=== PATIENT | male | born 1960 | race Caucasian/White ===

== ENCOUNTER → 2017-02-26 | Outpatient (CLI) | payer BC ==
[~2017-02-26] MED LIST: METO50TA7 PO
--- NOTE | 2017-02-26 10:33 | Diagnostic Imaging Report ---
INDICATION: Chest pain. PA and lateral views of the chest were obtained. Comparison made with prior examination from 07/03/2006. FINDINGS: The heart size is normal. Mediastinum is unremarkable. There is some patchy right basilar atelectasis and/or pneumonitis. There is no pleural effusion or pneumothorax. Mediastinum is unremarkable. IMPRESSION: Patchy right basilar atelectasis and/or pneumonitis. Dictated by: Dictated on workstation # [id number]
== END ==
LOC: RAD 10:06
PROVIDERS: ATTEND Family Medicine
DX: R07.9 Chest pain, unspecified (principal); R05 Cough
CPT/HCPCS: 71020

== ENCOUNTER → 2018-09-15 | Outpatient (CLI) | payer BC ==
--- NOTE | 2018-09-15 15:32 | Diagnostic Imaging Report ---
Examination: Scrotal ultrasound. History: Right-sided testicular enlargement tenderness. Findings: No comparison available. Right testis measures 4.6 x 2.0 x 3.3 cm. It is normal in size and echogenicity. The left testis measures 4.7 x 2.0 x 3.2 cm. The vessels are normal in size and echogenicity. Both epididymides normal. There is normal color Doppler flow to both testes. There is a 4.7 x 2.8 x 6.1 cm anechoic lesion centered in the right epididymis. This is favored to represent a large epididymal cyst, but given its large size is difficult to anatomically localize and may represent a loculated hydrocele. Impression: 1. Normal testes with normal color Doppler flow. 2. Large cystic lesion centered the right epididymis, favored to represent a large epididymal cyst, less likely a loculated hydrocele. Dictated by: Dictated on workstation # [id number]
== END ==
LOC: RAD 14:28
PROVIDERS: ATTEND Family Medicine
DX: N50.3 Cyst of epididymis (principal)
CPT/HCPCS: 76870

== ENCOUNTER 2018-09-29 05:59 | Outpatient (CLI) | payer BC ==
[~2018-09-29] VITALS: Ht 188 cm; Wt 100.2 kg
[2018-09-29] MEDS ORDERED: LISI-552 PO (12:03)
[2018-09-29] MEDS ORDERED: ALPR0.5T PO (12:03)
[2018-09-30] MEDS ORDERED: HYDR-3870 PO (07:21)
[2018-09-30] MEDS ORDERED: CEPH-507 PO (07:21)
== END 2018-09-29 12:10 | disposition home or self-care (01) ==
LOC: PREOP 05:59
PROVIDERS: ATTEND Urology
DX: Z01.818 Encounter for other preprocedural examination (principal)

== ENCOUNTER 2018-09-30 06:13 | Day surgery (SDC) | payer BC ==
[~2018-09-30] VITALS: Ht 188 cm; Wt 100.2 kg
[2018-09-30] VITALS (9 sets, daily range): BP systolic 118–128; BP diastolic 64–83
[~2018-09-30 06:13] MED LIST changes: +ALPR0.5T PO; +LISI-552 PO
--- OUTSIDE RECORDS SUMMARY | 2018-09-30 06:17 | XMS REPORT | Continuity of Care Document ---
Author Organization Unknown Address Unknown Allergies Active Description Code Type Severity Reaction Onset Reported/Identified Relationship to Patient Clinical Status Yes codeine [id number] Drug Allergy Unknown N/A 07/03/2006 Medications There is no data. Problems Date Dx Coded Attending Type Code Diagnosis Diagnosed By 02/14/2016 MICKY BHAGAT Ot 722.52 LUMB/LUMBOSAC DISC DEGEN 02/17/2016 KELLY RITTER MD Ot M25.561 PAIN IN RIGHT KNEE 02/22/2016 KELLY RITTER MD Ot M25.561 PAIN IN RIGHT KNEE 03/15/2017 KELLY RITTER MD Ot R05 COUGH 03/15/2017 KELLY RITTER MD Ot R07.9 CHEST PAIN, UNSPECIFIED 09/02/2017 MICKY BHAGAT Ot 722.52 LUMB/LUMBOSAC DISC DEGEN 09/02/2017 KELLY RITTER MD, Ot M25.561 PAIN IN RIGHT KNEE 09/02/2017 KELLY RITTER MD Ot R05 COUGH 09/02/2017 KELLY RITTER MD Ot R07.9 CHEST PAIN, UNSPECIFIED 09/03/2017 J LUIS AYALA Ot S49.92XA UNSP INJURY OF LEFT SHOULDER AND UPPER A 09/03/2017 J LUIS AYALA Ot Z53.8 PROCEDURE AND TREATMENT NOT CARRIED OUT 09/16/2018 KELLY RITTER MD Ot N50.3 CYST OF EPIDIDYMIS Procedures There is no data. Results There is no data. Encounters ACCT No. Visit Date/Time Discharge Status Pt. Type Provider Facility Loc./Unit Complaint [id number] 09/15/2018 14:28:00 09/15/2018 23:59:59 CLS Outpatient KELLY RITTER MD [facility] RAD PAIN IN RT TESTICLE [id number] 09/02/2017 07:41:00 09/02/2017 23:59:59 CLS Outpatient J LUIS AYALA [facility] RAD INJURY OF SHOULDER LEFT [id number] 02/26/2017 10:06:00 02/26/2017 23:59:59 CLS Outpatient KELLY RITTER MD [facility] RAD COUGH [id number] 02/14/2016 15:25:00 02/14/2016 23:59:59 CLS Outpatient KELLY RITTER MD [facility] RAD SEVERE R KNEE PAIN [id number] 09/07/2013 09:19:00 09/07/2013 23:59:59 CLS Outpatient MICKY BHAGAT [employer] [facility] RAD BACK PAIN [id number] 09/30/2018 10:15:00 PEN Preadmit JULITA BECKER MD [facility] RIGHT SPERMATOCELE [id number] 09/29/2018 05:59:00 ACT Outpatient JULITA BECKER MD [facility] PREOP RIGHT SPERMATOCELE
[2018-09-30] MEDS: LACTATED RINGERS 1,000 ML IV PRN ×2 (06:45→08:30)
--- NOTE | 2018-09-30 06:58 | Progress Note-Pre Operative ---
Pre-Operative Progress Note H&P Reviewed The H&P was reviewed, patient examined and no changes noted. Date Seen by Provider: Sep 30, 2018 Time Seen by Provider: 06:58 Date H&P Reviewed: Sep 30, 2018 Time H&P Reviewed: 06:58 Pre-Operative Diagnosis: RT SPERMATOCELE JULITA BECKER MD Sep 30, 2018 06:58
[2018-09-30] MEDS ORDERED: MIDAZOLAM 2 MG/2 ML (VERSED) VIAL ONE (06:59)
[2018-09-30] MEDS ORDERED: fentaNYL INJECTION 100 MCG/2 ML AMP ONE (07:00)
[2018-09-30] MEDS ORDERED: proPOfol 200 MG/20 ML (DIPRIVAN) VIAL IV ONE (07:02)
[2018-09-30] MEDS ORDERED: LIDOCAINE PF 2% 5 ML (XYLOCAINE) VIAL ONE (07:02)
--- NOTE | 2018-09-30 07:06 | Progress Note-Post Operative ---
Post-Operative Progess Note Surgeon (s)/Entry Level Project Engineer (s) Surgeon JULITA BECKER MD Entry Level Project Engineer: NONE Pre-Operative Diagnosis RT SPERMATOCELE Post-Operative Diagnosis SAME Procedure & Operative Findings Date of Procedure 09/30/18 Procedure Performed/Findings RT SPERMATOCELECTOMY Anesthesia Type GENERAL Estimated Blood Loss Estimated blood loss (mL): NEGLIGIBLE Specimens/Packing Specimens Removed SPERMATOCELE Packin/4# DAVID DRAIN JULITA BECKER MD Sep 30, 2018 07:06
[2018-09-30] MEDS ORDERED: ceFAZolin INJECTION 1,000 MG ONE (07:09)
--- NOTE | 2018-09-30 07:09 | Discharge Inst-Urology ---
Discharge Inst-Urology Discharge Medications New, Converted, or Re-newed RX: RX on Chart Patient Instructions/Follow Up Plan Please make appointment to been seen in office in 2 weeks. Rest till then and scrotal support Ice to scrotum in RR and at home for 6 hours and then PRN Office tomorrow 9am to DC drain then may shower, no bath Keep bowels soft and moving Increase oral fluids for 48 hours and then as needed. Diet as tolerated. If questions or concerns contact your physician Or seek help at emergency department. JULITA BECKER MD Sep 30, 2018 07:08
[2018-09-30] MEDS ORDERED: SEVOFLURANE (ULTANE) 15 ML INHAL SOLN ONE ×3 (07:12→08:46)
[2018-09-30] MEDS ORDERED: ceFAZolin INJECTION 1,000 MG in WATER (STERILE) FOR INJECTION 10 ML IV ONE (07:15)
[2018-09-30] MEDS ORDERED: HYDR-3870 PO (07:21)
[2018-09-30] MEDS ORDERED: CEPH-507 PO (07:21)
--- NOTE | 2018-09-30 08:16 | NUR ---
Hospital Nursing Assistant support offered prior to procedure: Pt is spiritual but not worship. 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 He describes 20+ years of strong rapport with his PCP, Dr. Madan Hand. The pt's left their family when his daughter was 5 yrs old and he raised her and her younger son. The son lives in [place]; the pt plans to meet his daughter in [place] this year to fish and spend time together. The pt describes supportive, loving relationships with his children and states this is a source of mary ann and comfort to him.
[2018-09-30] MEDS ORDERED: ONDANSETRON 4 MG/2 ML (SDV) Z0FRAN IVP PRN (08:45)
[2018-09-30] MEDS ORDERED: morphine INJ 10 MG/ML 1ML (SYR OR VIAL) IVP ONE (08:45)
[2018-09-30] MEDS ORDERED: fentaNYL INJECTION 100 MCG/2 ML AMP IVP ONE (08:45)
[2018-09-30] MEDS ORDERED: DEXAMETHASONE 10 MG/ML (DECADRON) 1 ML VIAL ONE (09:01)
[2018-09-30] MEDS ORDERED: ONDANSETRON 4 MG/2 ML (SDV) Z0FRAN ONE (09:01)
--- NOTE | 2018-09-30 11:35 | Anesthesia-General Post-Op ---
General Patient Condition Mental Status/LOC: Same as Preop Cardiovascular: Satisfactory Nausea/Vomiting: Absent Respiratory: Satisfactory Pain: Controlled Complications: Absent Post Op Complications Complications None Follow Up Care/Instructions Patient Instructions None needed. Anesthesia/Patient Condition Patient Condition Patient was seen after the procedure and he was doing well, no complaints, stable vital signs, no apparent adverse anesthesia problems. REMEDIOS HOGAN DO Sep 30, 2018 11:35
--- NOTE | 2018-09-30 12:28 | OPERATIVE REPORT ---
DATE OF SERVICE: 09/30/2018 PREOPERATIVE DIAGNOSIS: Right spermatocele. POSTOPERATIVE DIAGNOSIS: Right spermatocele. OPERATION PERFORMED: Right spermatocelectomy. SURGEON: Julita Becker MD ANESTHESIA: General. COMPLICATIONS: None. DESCRIPTION OF PROCEDURE: Under satisfactory general anesthesia, the patient in supine position, genitalia were prepped and draped in the usual sterile fashion. Incision was made in the median raphe, carried through the right scrotal compartment. The testicle and a large spermatocele were delivered. The spermatocele was carefully dissected to excise it completely without rupturing and this was successful to do. Vessels were spared as well as the vas. Small bleeders were cauterized. The edge of the spermatocele and connection was sutured with a 4-0 chromic catgut running suture for hemostatic and to prevent recurrence. Epididymis testicle was intact and preserved the vas as well as the spermatic cord and its vessels. Hemostasis was complete. The testicle was replaced into the scrotum that was drained with a quarter of an inch Leopoldo drain. Brought through a separate stab wound at the bottom of the scrotum secured in position with a 4-0 chromic catgut suture. Closure was performed in layer. The dartos with a running 4-0 chromic catgut and the skin was interrupted with 4-0 Vicryl. Telfa, fluff and scrotal support was applied. Estimated blood loss was negligible. Needle, sponge, instrument count correct x2. The patient tolerated the procedure and anesthesia well and was sent to recovery room in stable condition. Instructions were given to him preoperatively. Job ID: [id number] DocumentID: [id number] Dictated Date: 09/30/2018 09:05:16 Manager [place] Date: 09/30/2018 12:27:40 Dictated By: JULITA BECKER MD
== END 2018-09-30 10:42 | disposition home or self-care (01) ==
LOC: SDC 06:13
PROVIDERS: ATTEND Urology
DX: N43.41 Spermatocele of epididymis, single (principal); I10 Essential (primary) hypertension; F41.9 Anxiety disorder, unspecified; Z79.899 Other long term (current) drug therapy; Z88.5 Allergy status to narcotic agent; Z11.2 Encounter for screening for other bacterial diseases
CPT/HCPCS: 87081; 88302

== ENCOUNTER → 2019-03-17 | Outpatient (CLI) | payer BC ==
[~2019-03-17] MED LIST changes: +CEPH-507 PO; +HYDR-3870 PO
--- NOTE | 2019-03-17 15:02 | Diagnostic Imaging Report ---
INDICATION: Productive cough. TIME OF EXAM: 02:17 p.m. Correlation is made with prior chest from 02/26/2017. FINDINGS: Spinal stimulator overlies the mid thoracic spine. The lungs appear clear. No infiltrates are detected. No effusion or pneumothorax is seen. IMPRESSION: No acute abnormality is detected. Dictated by: Dictated on workstation # [id number]
== END ==
LOC: RAD 13:58
PROVIDERS: ATTEND Family Medicine
DX: F41.1 Generalized anxiety disorder (principal); R05 Cough
CPT/HCPCS: 71046

== ENCOUNTER 2019-03-21 08:41 | Observation (INO) | payer BC ==
[~2019-03-21] VITALS: Ht 188 cm; Wt 112.2 kg
[2019-03-21] MEDS ORDERED: NS IV 1000 ML 1,000 ML IV SCH ×2 (08:49)
--- NOTE | 2019-03-21 08:58 | ED Chest Pain ---
General Stated Complaint: CHEST PAIN / SOA Source: patient Exam Limitations: no limitations History of Present Illness Date Seen by Provider: Mar 21, 2019 Time Seen by Provider: 08:38 Initial Comments Patient presents ER by private conveyance with chief complaint of chest pain shortness of breath starting about 6:00 morning after he got up. He was not doin g anything strenuous. It is worse with exertion. He says the pain is about a 6 out of 10 sharp starting in his substernum and left chest radiating around to his left back and tingling down his left arm. If he takes a deep breath then the pain goes up to about a 10 out of 10. For the past for 5 days she's had upper respiratory symptoms with cough and malaise but no fevers or chills. No known sick contacts. No sore throat. He is not taking any medications for this but he did go see his primary care doctor, Dr. Hand who did a chest x-ray on Saturday which was read out clear, 5 days ago. He is not having a productive cough. He does not have a history of asthma or COPD. He has a distant history of smoking but does not use recreational drugs. He drinks beer 2-3 per instance; couple times a week. He has no prior history of coronary disease or lung disease. No significant familial history. He does have hypertension but no history of hyperlipidemia or diabetes. Allergies and Home Medications Allergies Coded Allergies: codeine (Verified Allergy, Unknown, 07/03/06) Home Medications Alprazolam 0.5 Mg Tablet, 0.5 MG PO BID PRN for ANXIETY, (Reported) Cephalexin 500 Mg Capsule, 500 MG PO BID Prescribed by: JORDAN JOY on 09/30/18 07 Hydrocodone/Acetaminophen 1 Each Tablet, 1-2 EACH PO Q4H PRN for PAIN-MODERATE Prescribed by: JORDAN JOY on 09/30/18 07 Lisinopril 20 Mg Tablet, 20 MG PO DAILY, (Reported) Patient Home Medication List Home Medication List Reviewed: Yes Review of Systems Review of Systems Constitutional: chills; No diaphoresis, No dizziness, No fever; malaise EENTM: No Blurred Vision, No Double Vision Respiratory: Cough, Shortness of Air; Denies Wheezing Cardiovascular: Chest Pain; Denies Edema, Denies Irregular Heart Rate, Denies Lightheadedness, Denies Palpitations, Denies Syncope Gastrointestinal: Denies Abdomen Distended, Denies Abdominal Pain, Denies Constipated, Denies Diarrhea, Denies Nausea Genitourinary: Denies Burning, Denies Discharge Musculoskeletal: No back pain, No joint pain Skin: No pruritus, No rash Psychiatric/Neurological: Denies Headache, Denies Numbness, Denies Paresthesia All Other Systems Reviewed Negative Unless Noted: Yes Past Nlqiuvt-Qvuzyo-Jzzomt Hx Patient Social History Alcohol Use: Occasionally Uses Alcohol Beverage of Choice: Beer Recreational Drug Use: No Smoking Status: Former Smoker Type Used: Cigarettes Recent Foreign Travel: No Contact w/Someone Who Travel: No Recent Hopitalizations: No Immunizations Up To Date PED Vaccines UTD: No Seasonal Allergies Seasonal Allergies: Yes Past Medical History Surgeries: Yes (BACK SX x3, , R leg x5, , ROTATOR CUFF x3, back stim) Respiratory: No Cardiac: Yes Hypertension Neurological: No Genitourinary: No Gastrointestinal: No Musculoskeletal: No Endocrine: No HEENT: No Cancer: No Psychosocial: Yes Anxiety Integumentary: No Blood Disorders: No Physical Exam Vital Signs Vital Signs - First Documented 03/21/19 08:41 Temp 36.6 Pulse 90 Resp 24 B/P (MAP) 153/83 (106) Pulse Ox 97 O2 Delivery Room Air Capillary Refill : Height, Weight, BMI Height: 6'2.00" Weight: 221lbs. 0.0oz. 100.757056tx; 28.4 BMI Method: General Appearance: Anxious, Mild Distress HEENT: PERRL/EOMI, TMs Normal, Normal ENT Inspection, Pharynx Normal, Moist Mucous Membranes Neck: Full Range of Motion, Normal Inspection, Non Tender, Supple Respiratory: Lungs Clear, Normal Breath Sounds, No Accessory Muscle Use, Respiratory Distress (mild, respiratory rate 24) Cardiovascular: Regular Rate, Rhythm, No Edema, Normal Peripheral Pulses Gastrointestinal: Normal Bowel Sounds, Non Tender, Soft Extremity: Normal Range of Motion, Non Tender, No Calf Tenderness, No Pedal Edema, Slow Capillary Refill Neurologic/Psychiatric: Alert, Oriented x3, No Motor/Sensory Deficits Skin: Cool; No Diaphoresis; Pallor Focused Exam Sepsis Stage: Ruled Out Reason for ruling out sepsis: pulmonary embolism without evidence of infection Lactate Level 03/21/19 08:55: Lactic Acid Level 1.61 Lactic Acid Level Laboratory Tests Test 03/21/19 08:55 Lactic Acid Level 1.61 MMOL/L (0.50-2.00) Progress/Results/Core Measures Results/Orders Lab Results Laboratory Tests Test 03/21/19 08:55 03/21/19 09:55 Range/Units White Blood Count 8.4 4.3-11.0 10^3/uL Red Blood Count 5.00 4.35-5.85 10^6/uL Hemoglobin 14.2 13.3-17.7 G/DL Hematocrit 42 40-54 % Mean Corpuscular Volume 85 80-99 FL Mean Corpuscular Hemoglobin 28 25-34 PG Mean Corpuscular Hemoglobin Concent 34 32-36 G/DL Red Cell Distribution Width 13.9 10.0-14.5 % Platelet Count 294 130-400 10^3/uL Mean Platelet Volume 8.5 7.4-10.4 FL Neutrophils (%) (Auto) 73 42-75 % Lymphocytes (%) (Auto) 16 12-44 % Monocytes (%) (Auto) 9 0-12 % Eosinophils (%) (Auto) 2 0-10 % Basophils (%) (Auto) 1 0-10 % Neutrophils # (Auto) 6.1 1.8-7.8 X 10^3 Lymphocytes # (Auto) 1.3 1.0-4.0 X 10^3 Monocytes # (Auto) 0.7 0.0-1.0 X 10^3 Eosinophils # (Auto) 0.1 0.0-0.3 10^3/uL Basophils # (Auto) 0.1 0.0-0.1 10^3/uL Prothrombin Time 14.3 12.2-14.7 SEC INR Comment 1.1 0.8-1.4 Activated Partial Thromboplast Time 31 24-35 SEC D-Dimer 1.90 H 0.00-0.49 UG/ML Sodium Level 136 135-145 MMOL/L Potassium Level 4.5 3.6-5.0 MMOL/L Chloride Level 104 98-107 MMOL/L Carbon Dioxide Level 19 L 21-32 MMOL/L Anion Gap 13 5-14 MMOL/L Blood Urea Nitrogen 14 7-18 MG/DL Creatinine 0.99 0.60-1.30 MG/DL Estimat Glomerular Filtration Rate > 60 BUN/Creatinine Ratio 14 Glucose Level 120 H 70-105 MG/DL Lactic Acid Level 1.61 0.50-2.00 MMOL/L Calcium Level 9.2 8.5-10.1 MG/DL Corrected Calcium 9.4 8.5-10.1 MG/DL Magnesium Level 1.9 1.6-2.4 MG/DL Total Bilirubin 0.6 0.1-1.0 MG/DL Aspartate Amino Transf (AST/SGOT) 18 5-34 U/L Alanine Aminotransferase (ALT/SGPT) 11 0-55 U/L Alkaline Phosphatase 100 40-136 U/L Myoglobin 40.3 10.0-92.0 NG/ML Troponin I < 0.028 <0.028 NG/ML B-Type Natriuretic Peptide 11.8 <100.0 PG/ML Total Protein 7.1 6.4-8.2 GM/DL Albumin 3.8 3.2-4.5 GM/DL Urine Color YELLOW Urine Clarity CLEAR Urine pH 5.5 5-9 Urine Specific Deport 1.015 L 1.016-1.022 Urine Protein NEGATIVE NEGATIVE Urine Glucose (UA) NEGATIVE NEGATIVE Urine Ketones NEGATIVE NEGATIVE Urine Nitrite NEGATIVE NEGATIVE Urine Bilirubin NEGATIVE NEGATIVE Urine Urobilinogen 0.2 < = 1.0 MG/DL Urine Leukocyte Esterase NEGATIVE NEGATIVE Urine RBC (Auto) 1+ H NEGATIVE Urine RBC NONE /HPF Urine WBC RARE /HPF Urine Squamous Epithelial Cells 0-2 /HPF Urine Crystals NONE /LPF Urine Bacteria TRACE /HPF Urine Casts NONE /LPF Urine Mucus NEGATIVE /LPF Urine Culture Indicated CULTURE PENDING Urine Opiates Screen NEGATIVE NEGATIVE Urine Oxycodone Screen NEGATIVE NEGATIVE Urine Methadone Screen NEGATIVE NEGATIVE Urine Propoxyphene Screen NEGATIVE NEGATIVE Urine Barbiturates Screen NEGATIVE NEGATIVE Ur Tricyclic Antidepressants Screen NEGATIVE NEGATIVE Urine Phencyclidine Screen NEGATIVE NEGATIVE Urine Amphetamines Screen NEGATIVE NEGATIVE Urine Methamphetamines Screen NEGATIVE NEGATIVE Urine Benzodiazepines Screen POSITIVE H NEGATIVE Urine Cocaine Screen NEGATIVE NEGATIVE Urine Cannabinoids Screen NEGATIVE NEGATIVE Micro Results Microbiology 03/21/19 Influenza Types A,B Antigen (RONY) - Final, Complete My Orders Orders - JILLIAN ANDERS Continuous Ekg Monitoring (03/21/19 08:42) Ekg Tracing (03/21/19 08:42) Cbc With Automated Diff (03/21/19 08:49) Magnesium (03/21/19 08:49) Chest 1 View, Ap/Pa Only (03/21/19 08:49) Comprehensive Metabolic Panel (03/21/19 08:49) Myoglobin Serum (03/21/19 08:49) Protime With Inr (03/21/19 08:49) Partial Thromboplastin Time (03/21/19 08:49) O2 (03/21/19 08:49) Lipid Panel (03/22/19 06:00) Ed Iv/Invasive Line Start (03/21/19 08:49) BNP (03/21/19 08:49) Fibrin Degradation Products (03/21/19 08:49) Troponin I (03/21/19 08:49) Nitroglycerin 0.4 Mg Btl 25's (Nitrostat (03/21/19 09:00) Aspirin Chewable Tablet (Baby Aspirin Ch (03/21/19 09:00) Blood Culture (03/21/19 08:49) Sputum Culture (03/21/19 08:49) Urinalysis (03/21/19 08:49) Urine Culture (03/21/19 08:49) Ed Iv/Invasive Line Start (03/21/19 08:49) Ed Iv/Invasive Line Start (03/21/19 08:49) Vital Signs Adult Sepsis Patie Q15M (03/21/19 08:49) O2 (03/21/19 08:49) Remove Rings In Anticipation O (03/21/19 08:49) Lactic Acid Analyzer (03/21/19 08:49) Influenza A And B Antigens (03/21/19 08:49) Ns Iv 1000 Ml (Sodium Chloride 0.9%) (03/21/19 08:49) Cefepime Injection (Maxipime Injection) (03/21/19 09:00) Ed Iv/Invasive Line Start (03/21/19 08:49) Ns Iv 1000 Ml (Sodium Chloride 0.9%) (03/21/19 08:49) Ct Angio Chest W (03/21/19 10:00) Iohexol Injection (Omnipaque 350 Mg/Ml 1 (03/21/19 10:15) Received Contrast (Hold Metformin- Contr (03/21/19 10:15) Ns (Ivpb) (Sodium Chloride 0.9% Ivpb Bag (03/21/19 10:15) Drug Screen Stat (Urine) (03/21/19 10:24) Enoxaparin Injection (Lovenox Injection) (03/21/19 11:15) Apixaban Tablet (Eliquis Tablet) (03/21/19 11:30) Medications Given in ED Current Medications Medications Dose Ordered Sig/Ruy Route Start Time Stop Time Status Last Admin Dose Admin Apixaban 10 mg ONCE ONCE PO 03/21/19 11:30 03/21/19 11:31 DC 03/21/19 11:35 10 MG Aspirin 324 mg ONCE ONCE PO 03/21/19 09:00 03/21/19 09:01 DC 03/21/19 09:07 324 MG Cefepime HCl 1000 mg/Sterile Water 10 ml @ 200 mls/hr ONCE ONCE IV 03/21/19 09:00 03/21/19 09:02 DC 03/21/19 09:22 200 MLS/HR Iohexol 100 ml ONCE ONCE IV 03/21/19 10:15 03/21/19 10:16 DC 03/21/19 10:45 84 ML Nitroglycerin 0.4 mg UD PRN SL 03/21/19 09:00 03/21/19 09:09 0.4 MG Sodium Chloride 100 ml ONCE ONCE IV 03/21/19 10:15 03/21/19 10:16 DC 03/21/19 10:45 80 ML Vital Signs/I&O 03/21/19 03/21/19 08:41 08:41 Temp 36.6 Pulse 90 Resp 24 B/P (MAP) 153/83 (106) Pulse Ox 97 O2 Delivery Room Air Progress Progress Note : Time: 09:00 Progress Note Pleuritic sounding chest pain with for 5 days of upper respiratory symptoms. We'll get an influenza swab, septic workup based on his rapid respiratory rate and heart rate in the 90s. We will also get a chest pain workup thinking about coronary disease, pulmonary embolism, AAA dissection, pneumonia, et al. We'll start with aspirin and nitroglycerin for his chest discomfort. Echocardiogram from [address] Simpson demonstrates an EF of 60%. Trace mitral and tricuspid regurgitation. Pulmonary artery pressure 30 mmHg. BMI is 32. [place] body weight adjusted to 210 pounds. Initial ECG Impression Date: Mar 21, 2019 Initial ECG Impression Time: 08:42 Initial ECG Rate: 89 Initial ECG Rhythm: Normal Sinus Initial ECG Intervals: Normal Initial ECG Impression: Normal Initial ECG Comparisson: No Previous ECG Available Comment Normal sinus rhythm without clinically relevant ST elevation or depression. Diagnostic Imaging Diagonstic Imaging: Xray Plain Films/CT/US/NM/MRI: chest (1v) Comments [facility], [place] NAME: LUCINDA FRENCH [facility] REC#: [id number] PT STATUS: REG ER : 1960 PHYSICIAN: JILLIAN ANDERS MD ADMIT DATE: 03/21/19/ER Signed Date of Exam:03/21/19 CHEST 1 VIEW, AP/PA ONLY EXAMINATION: Chest radiograph, portable AP view. DATE: 03/21/2019 9:18 AM hours. INDICATION: 58-year-old male, chest pain and shortness of breath. COMPARISON: March 17, 2019. FINDINGS: Stable overall appearance of the cardiomediastinal silhouette. There is no identified pneumothorax. There is nonspecific airspace consolidation in the left greater than right lung bases. IMPRESSION: 1. Nonspecific airspace consolidation in the left greater than right lung bases which may relate to infiltrate and/or atelectasis. Dictated by: Dictated on workstation # [id number] Dict: 03/21/19921 Trans: 03/21/19929 [facility] [id number] Interpreted by: ZENIA MOTA MD Electronically signed by: ZENIA MOTA MD 03/21/19929 Reviewed: Reviewed by Mi Diagonstic Imaging: CT (angio) Plain Films/CT/US/NM/MRI: chest Comments [facility], [place] NAME: LUCINDA FRENCH [facility] REC#: [id number] PT STATUS: REG ER : 1960 PHYSICIAN: JILLIAN ANDERS MD ADMIT DATE: 03/21/19/ER Draft Date of Exam:03/21/19 CT ANGIO CHEST W PROCEDURE: CT angiography of the chest with contrast. TECHNIQUE: Multiple contiguous axial images were obtained through the chest after uneventful bolus administration of intravenous contrast. 3D reconstructed CTA MIP acquisitions were also performed. Auto Exposure Controls were utilized during the CT exam to meet ALARA standards for radiation dose reduction. DATE: March 21, 2019. COMPARISON: Chest radiograph March 21, 2019. INDICATION: 58-year-old male, chest pain. FINDINGS: There is nonspecific peripheral airspace consolidation in the left upper lobe on axial image 45 and adjacent sequential images. There is additional airspace consolidation in the left lower lobe which does not entirely homogeneously enhance. There is a trace to small left pleural effusion. There are mild upper lobe predominant changes of emphysema. There are predominantly linear opacities in the right middle lobe most likely relating to atelectasis. There are additional predominantly linear opacities in the right lower lobe also most likely reflecting atelectasis. There is no pneumothorax. The more central airways are patent. There is no sizable right pleural effusion. There is a right-sided pulmonary embolus extending from the right main pulmonary artery into segmental and subsegmental right lower lobe pulmonary artery branches as well as right upper lobe segmental and subsegmental pulmonary artery branches. There is also embolus within the distal aspect of the left main pulmonary artery extending into left upper lobe and left lower lobe segmental branches as well as subsegmental branches of the left upper lobe. The main pulmonary artery diameter measures within normal limits at 2.8 cm. The heart is not enlarged. There is no pericardial effusion. There is no identified abnormally enlarged mediastinal, hilar, or axillary lymph node which meets CT size criteria for adenopathy. The imaged portions of the upper abdomen are unremarkable. There is no identified acute bony abnormality. IMPRESSION: CT CHEST. 1. Bilateral pulmonary emboli extending from the right and left main pulmonary arteries into segmental and subsegmental pulmonary artery branches as detailed above. No abnormally enlarged main pulmonary artery diameter. 2. Nonspecific airspace consolidation in the left upper lobe and left lower lobe. Trace to small left pleural effusion. Dr. Anders was notified by telephone of the bilateral pulmonary emboli at 1059 hours on March 21, 2019 and acknowledged receipt of this critical result. Dictated on workstation # [id number] Dict: 03/21/19 1054 Trans: 03/21/19 1106 CV [id number] Interpreted by: ZENIA MOTA MD Electronically signed by: Reviewed: Reviewed by Mi Departure Communication (Admissions) Time/Spoke to Admitting Phy: 12:25 Dr Fuentes: Agrees to observe the patient on Eliquis, cardiac stepdown Time/Spoke to Consulting Phy: 11:30 Dr. Simpson agrees to consult on the case Impression Primary Impression: Pulmonary embolism Qualified Codes: I26.99 - Other pulmonary embolism without acute cor pulmonale Additional Impression: Chest pain Qualified Codes: R07.89 - Other chest pain Disposition: 09 ADMITTED INPATIENT Condition: Stable Admissions Decision to Admit Reason: Admit from ER (General) Decision to Admit/Date: Mar 21, 2019 Time/Decision to Admit Time: 11:30 Departure-Patient Inst. Referrals: KELLY HAND MD (PCP/Family) Primary Care Physician JILLIAN ANDERS Mar 21, 2019 08:58
[2019-03-21] MEDS ORDERED: ASPIRIN 81 MG CHEW (CHILDREN'S ASA) PO ONE (09:00)
[2019-03-21] MEDS ORDERED: CEFEPIME INJECTION 1,000 MG in WATER (STERILE) FOR INJECTION 10 ML IV ONE (09:00)
[2019-03-21] MEDS ORDERED: NITROGLYCERIN 0.4 MG SL TABS BTL 25'S SL PRN (09:00)
[2019-03-21 09:08] LABS: BASOPHILS # (AUTO) 0.1 10^3/uL (0.0-0.1); BASOPHILS % (AUTO) 1 % (0-10); EOSINOPHILS # (AUTO) 0.1 10^3/uL (0.0-0.3); EOSINOPHILS % (AUTO) 2 % (0-10); HEMATOCRIT 42 % (40-54); HEMOGLOBIN 14.2 G/DL (13.3-17.7); LYMPHOCYTES # (AUTO) 1.3 X 10^3 (1.0-4.0); LYMPHOCYTES % (AUTO) 16 % (12-44); MEAN CORPUSCULAR HEMOGLOBIN 28 PG (25-34); MEAN CORPUSCULAR HGB CONC 34 G/DL (32-36); MEAN CORPUSCULAR VOLUME 85 FL (80-99); MEAN PLATELET VOLUME 8.5 FL (7.4-10.4); MONOCYTES # (AUTO) 0.7 X 10^3 (0.0-1.0); MONOCYTES % (AUTO) 9 % (0-12); NEUTROPHILS # (AUTO) 6.1 X 10^3 (1.8-7.8); NEUTROPHILS % (AUTO) 73 % (42-75); PLATELET COUNT 294 10^3/uL (130-400); RED CELL DISTRIBUTION WIDTH 13.9 % (10.0-14.5); WHITE BLOOD COUNT 8.4 10^3/uL (4.3-11.0)
[2019-03-21 09:19] LABS: INR 1.1 (0.8-1.4); PROTHROMBIN TIME PATIENT 14.3 SEC (12.2-14.7)
--- NOTE | 2019-03-21 09:26 | Diagnostic Imaging Report ---
EXAMINATION: Chest radiograph, portable AP view. DATE: 03/21/2019 9:18 AM hours. INDICATION: 58-year-old male, chest pain and shortness of breath. COMPARISON: March 17, 2019. FINDINGS: Stable overall appearance of the cardiomediastinal silhouette. There is no identified pneumothorax. There is nonspecific airspace consolidation in the left greater than right lung bases. IMPRESSION: 1. Nonspecific airspace consolidation in the left greater than right lung bases which may relate to infiltrate and/or atelectasis. Dictated by: Dictated on workstation # [id number]
[2019-03-21 09:28] LABS: ALANINE AMINOTRANSFERASE 11 U/L (0-55); ALBUMIN 3.8 GM/DL (3.2-4.5); ALKALINE PHOSPHATASE 100 U/L (40-136); BILIRUBIN,TOTAL 0.6 MG/DL (0.1-1.0); BUN/CREATININE RATIO 14; CALCIUM 9.2 MG/DL (8.5-10.1); CARBON DIOXIDE 19 MMOL/L (21-32); CHLORIDE 104 MMOL/L (98-107); CREATININE SERUM 0.99 MG/DL (0.60-1.30); GFR ESTIMATED > 60; GLUCOSE 120 MG/DL (70-105); MAGNESIUM 1.9 MG/DL (1.6-2.4); POTASSIUM 4.5 MMOL/L (3.6-5.0); SODIUM 136 MMOL/L (135-145); TOTAL PROTEIN 7.1 GM/DL (6.4-8.2)
[2019-03-21 10:03] LABS: BILIRUBIN,URINE NEGATIVE (NEGATIVE); CLARITY,URINE CLEAR; COLOR,URINE YELLOW; GLUCOSE, URINE (UA) NEGATIVE (NEGATIVE); KETONES,URINE NEGATIVE (NEGATIVE); LEUKOCYTE ESTERASE ,URINE NEGATIVE (NEGATIVE); NITRITE,URINE NEGATIVE (NEGATIVE); PH,URINE 5.5 (5-9); PROTEIN,URINE NEGATIVE (NEGATIVE)
[2019-03-21 10:15] LABS: BACTERIA,URINE TRACE /HPF; SQUAMOUS EPITHELIAL CELL,UR 0-2 /HPF; WBC,URINE RARE /HPF
[2019-03-21] MEDS ORDERED: IOHEXOL 350 MG/ML 100 ML (OMNIPAQUE 350) VIAL IV ONE (10:15)
[2019-03-21] MEDS ORDERED: HOLD METFORMIN - RECEIVED CONTRAST 20 ML VIAL IV SCH (10:15)
[2019-03-21] MEDS ORDERED: NS 100 ML (IVPB) BAG IV ONE (10:15)
--- NOTE | 2019-03-21 11:07 | Diagnostic Imaging Report ---
PROCEDURE: CT angiography of the chest with contrast. TECHNIQUE: Multiple contiguous axial images were obtained through the chest after uneventful bolus administration of intravenous contrast. 3D reconstructed CTA MIP acquisitions were also performed. Auto Exposure Controls were utilized during the CT exam to meet ALARA standards for radiation dose reduction. DATE: March 21, 2019. COMPARISON: Chest radiograph March 21, 2019. INDICATION: 58-year-old male, chest pain. FINDINGS: There is nonspecific peripheral airspace consolidation in the left upper lobe on axial image 45 and adjacent sequential images. There is additional airspace consolidation in the left lower lobe which does not entirely homogeneously enhance. There is a trace to small left pleural effusion. There are mild upper lobe predominant changes of emphysema. There are predominantly linear opacities in the right middle lobe most likely relating to atelectasis. There are additional predominantly linear opacities in the right lower lobe also most likely reflecting atelectasis. There is no pneumothorax. The more central airways are patent. There is no sizable right pleural effusion. There is a right-sided pulmonary embolus extending from the right main pulmonary artery into segmental and subsegmental right lower lobe pulmonary artery branches as well as right upper lobe segmental and subsegmental pulmonary artery branches. There is also embolus within the distal aspect of the left main pulmonary artery extending into left upper lobe and left lower lobe segmental branches as well as subsegmental branches of the left upper lobe. The main pulmonary artery diameter measures within normal limits at 2.8 cm. The heart is not enlarged. There is no pericardial effusion. There is no identified abnormally enlarged mediastinal, hilar, or axillary lymph node which meets CT size criteria for adenopathy. The imaged portions of the upper abdomen are unremarkable. There is no identified acute bony abnormality. IMPRESSION: CT CHEST. 1. Bilateral pulmonary emboli extending from the right and left main pulmonary arteries into segmental and subsegmental pulmonary artery branches as detailed above. No abnormally enlarged main pulmonary artery diameter. 2. Nonspecific airspace consolidation in the left upper lobe and left lower lobe. Trace to small left pleural effusion. Dr. Anders was notified by telephone of the bilateral pulmonary emboli at 1059 hours on March 21, 2019 and acknowledged receipt of this critical result. Dictated by: Dictated on workstation # [id number]
[2019-03-21] MEDS ORDERED: ENOXAPARIN 60 MG/0.6 ML (LOVENOX) SYR SC ONE (11:15)
[2019-03-21 11:16] LABS: AMPHETAMINE SCREEN, URINE NEGATIVE (NEGATIVE); BARBITURATE SCREEN URINE NEGATIVE (NEGATIVE); BENZODIAZEPINES SCREEN URINE POSITIVE (NEGATIVE); CANNABINOID SCREEN, URINE NEGATIVE (NEGATIVE); COCAINE SCREEN URINE NEGATIVE (NEGATIVE); METHADONE STAT NEGATIVE (NEGATIVE); METHAMPHETAMINE SCREEN URINE S NEGATIVE (NEGATIVE); OPIATE SCREEN URINE NEGATIVE (NEGATIVE); OXYCODONE STAT NEGATIVE (NEGATIVE); PROPOXYPHENE STAT NEGATIVE (NEGATIVE); TRICYCLIC ANTIDEPRESSANTS SCRE NEGATIVE (NEGATIVE)
[2019-03-21] MEDS ORDERED: APIXABAN 5 MG (ELIQUIS) TABLET PO ONE (11:30)
[2019-03-21 13:15] VITALS: BP 128/90
[2019-03-21] MEDS ORDERED: ACETAMINOPHEN 500 MG TAB (TYLENOL) PO PRN (13:15)
[2019-03-21] MEDS ORDERED: morphine INJ 4 MG/ML 1 ML (VIAL/SYRINGE) IV PRN (13:15)
[2019-03-21] MEDS ORDERED: ONDANSETRON 4 MG/2 ML (SDV) Z0FRAN IV PRN (13:15)
--- NOTE | 2019-03-21 13:21 | Consultation-Cardiology ---
HPI-Cardiology Cardiology Consultation Date of Consultation 03/21/19 Date of Admission Time Seen by Provider: 13:18 Indication: chest pain HPI 58-year-old gentleman with history of hypertension, has been having increasing shortness of breath over the past week, mild cough, had an episode of chest pain today felt tightness all over his chest. Came into the emergency room. Workup showed bilateral pulmonary embolism. Denied any previous cardiac history, no previous history of PE Home Medications & Allergies Allergies: Coded Allergies: codeine (Verified Allergy, Unknown, 07/03/06) Home Medication List Reviewed: Yes [id number]-Xvvlpe Hx Patient Social History Marital Status: single Employed/Student: employed Alcohol Use: Occasionally Uses Recreational Drug Use: No Smoking Status: Former Smoker Type Used: Cigarettes Recent Foreign Travel: No Recent Infectious Disease Expo: No Recent Hopitalizations: No Past Medical History Hypertension Family Medical History Family Medical Hx Noncontributory Review of Systems-General Review of Systems Constitutional: chills; No diaphoresis, No dizziness, No fever; malaise EENTM: see HPI, no symptoms reported Respiratory: see HPI, cough, dyspnea on exertion; No hemoptysis, No orthopnea, No phlegm, No short of breath, No stridor, No wheezing, No other Cardiovascular: see HPI, chest pain; No edema, No Hx of Intervention, No palpitations, No syncope, No vascular heart diseas, No other Gastrointestinal: no symptoms reported, see HPI Genitourinary: no symptoms reported, see HPI Musculoskeletal: see HPI; No back pain, No joint pain Skin: No pruritus, No rash Psychiatric/Neurological: See HPI; Denies Headache, Denies Numbness, Denies Paresthesia All Other Systems Reviewed Negative Unless Noted: Yes Reviewed Test Results Reviewed Test Results Lab Laboratory Tests Test 03/21/19 08:55 03/21/19 09:55 Range/Units White Blood Count 8.4 4.3-11.0 10^3/uL Red Blood Count 5.00 4.35-5.85 10^6/uL Hemoglobin 14.2 13.3-17.7 G/DL Hematocrit 42 40-54 % Mean Corpuscular Volume 85 80-99 FL Mean Corpuscular Hemoglobin 28 25-34 PG Mean Corpuscular Hemoglobin Concent 34 32-36 G/DL Red Cell Distribution Width 13.9 10.0-14.5 % Platelet Count 294 130-400 10^3/uL Mean Platelet Volume 8.5 7.4-10.4 FL Neutrophils (%) (Auto) 73 42-75 % Lymphocytes (%) (Auto) 16 12-44 % Monocytes (%) (Auto) 9 0-12 % Eosinophils (%) (Auto) 2 0-10 % Basophils (%) (Auto) 1 0-10 % Neutrophils # (Auto) 6.1 1.8-7.8 X 10^3 Lymphocytes # (Auto) 1.3 1.0-4.0 X 10^3 Monocytes # (Auto) 0.7 0.0-1.0 X 10^3 Eosinophils # (Auto) 0.1 0.0-0.3 10^3/uL Basophils # (Auto) 0.1 0.0-0.1 10^3/uL Prothrombin Time 14.3 12.2-14.7 SEC INR Comment 1.1 0.8-1.4 Activated Partial Thromboplast Time 31 24-35 SEC D-Dimer 1.90 H 0.00-0.49 UG/ML Sodium Level 136 135-145 MMOL/L Potassium Level 4.5 3.6-5.0 MMOL/L Chloride Level 104 98-107 MMOL/L Carbon Dioxide Level 19 L 21-32 MMOL/L Anion Gap 13 5-14 MMOL/L Blood Urea Nitrogen 14 7-18 MG/DL Creatinine 0.99 0.60-1.30 MG/DL Estimat Glomerular Filtration Rate > 60 BUN/Creatinine Ratio 14 Glucose Level 120 H 70-105 MG/DL Lactic Acid Level 1.61 0.50-2.00 MMOL/L Calcium Level 9.2 8.5-10.1 MG/DL Corrected Calcium 9.4 8.5-10.1 MG/DL Magnesium Level 1.9 1.6-2.4 MG/DL Total Bilirubin 0.6 0.1-1.0 MG/DL Aspartate Amino Transf (AST/SGOT) 18 5-34 U/L Alanine Aminotransferase (ALT/SGPT) 11 0-55 U/L Alkaline Phosphatase 100 40-136 U/L Myoglobin 40.3 10.0-92.0 NG/ML Troponin I < 0.028 <0.028 NG/ML B-Type Natriuretic Peptide 11.8 <100.0 PG/ML Total Protein 7.1 6.4-8.2 GM/DL Albumin 3.8 3.2-4.5 GM/DL Urine Color YELLOW Urine Clarity CLEAR Urine pH 5.5 5-9 Urine Specific [place] 1.015 L 1.016-1.022 Urine Protein NEGATIVE NEGATIVE Urine Glucose (UA) NEGATIVE NEGATIVE Urine Ketones NEGATIVE NEGATIVE Urine Nitrite NEGATIVE NEGATIVE Urine Bilirubin NEGATIVE NEGATIVE Urine Urobilinogen 0.2 < = 1.0 MG/DL Urine Leukocyte Esterase NEGATIVE NEGATIVE Urine RBC (Auto) 1+ H NEGATIVE Urine RBC NONE /HPF Urine WBC RARE /HPF Urine Squamous Epithelial Cells 0-2 /HPF Urine Crystals NONE /LPF Urine Bacteria TRACE /HPF Urine Casts NONE /LPF Urine Mucus NEGATIVE /LPF Urine Culture Indicated CULTURE PENDING Urine Opiates Screen NEGATIVE NEGATIVE Urine Oxycodone Screen NEGATIVE NEGATIVE Urine Methadone Screen NEGATIVE NEGATIVE Urine Propoxyphene Screen NEGATIVE NEGATIVE Urine Barbiturates Screen NEGATIVE NEGATIVE Ur Tricyclic Antidepressants Screen NEGATIVE NEGATIVE Urine Phencyclidine Screen NEGATIVE NEGATIVE Urine Amphetamines Screen NEGATIVE NEGATIVE Urine Methamphetamines Screen NEGATIVE NEGATIVE Urine Benzodiazepines Screen POSITIVE H NEGATIVE Urine Cocaine Screen NEGATIVE NEGATIVE Urine Cannabinoids Screen NEGATIVE NEGATIVE Physical Exam Physical Exam Vital Signs Vital Signs - First Documented 03/21/19 08:41 Temp 36.6 Pulse 90 Resp 24 B/P (MAP) 153/83 (106) Pulse Ox 97 O2 Delivery Room Air Capillary Refill : Less Than 3 Seconds Height, Weight, BMI Height: 6'2.00" Weight: 221lbs. 0.0oz. [id number]; 32.00 BMI Method: General Appearance: Anxious, Mild Distress Eyes: Bilateral Eye Normal Inspection, Bilateral Eye PERRL, Bilateral Eye EOMI HEENT: PERRL/EOMI, TMs Normal, Normal ENT Inspection, Pharynx Normal, Moist Mucous Membranes Neck: Full Range of Motion, Normal Inspection, Non Tender, Supple Respiratory: Lungs Clear, Normal Breath Sounds, No Accessory Muscle Use, Respiratory Distress (mild, respiratory rate 24) Cardiovascular: Regular Rate, Rhythm, No Edema, Normal Peripheral Pulses Gastrointestinal: Normal Bowel Sounds, Non Tender, Soft Back: Normal Inspection, No CVA Tenderness, No Vertebral Tenderness Extremity: Normal Range of Motion, Non Tender, No Calf Tenderness, Pedal Edema (mild edema on the left leg), Slow Capillary Refill Neurologic/Psychiatric: Alert, Oriented x3, No Motor/Sensory Deficits Skin: Cool; No Diaphoresis; Pallor Lymphatic: No Adenopathy A/P-Cardiology Admission Diagnosis Chest pain Shortness of breath Acute pulmonary embolism Hypertension Assessment/Plan Acute pulmonary embolism, having active chest pain. Started on Eliquis 10 mg twice daily, I will evaluate venous Doppler study Chest pain, shortness of breath, probably secondary to pulmonary embolism, continue to monitor, evaluate 2-D echo Hypertension, restart home medication monitor blood pressure No recent travel. History of tobaccoism in the remote past. No source of embolization was identified yet. Workup is in progress History of syncope over 10 years ago no further episodes were reported Clinical Quality Measures AMI/AHF: ASA po Prior to arrival: MARIA A Gil MD Mar 21, 2019 1:21 pm
[2019-03-21] MEDS: fentaNYL INJECTION 100 MCG/2 ML AMP IV PRN ×2 (17:36→20:39)
[2019-03-21 20:00] VITALS: BP 135/92
[2019-03-21] MEDS: APIXABAN 5 MG (ELIQUIS) TABLET PO SCH (20:38)
[2019-03-22] VITALS: BP 134/97
[2019-03-22 03:26] LABS: BASOPHILS % (AUTO) 1 % (0-10); EOSINOPHILS # (AUTO) 0.2 10^3/uL (0.0-0.3); EOSINOPHILS % (AUTO) 3 % (0-10); HEMATOCRIT 41 % (40-54); HEMOGLOBIN 13.7 G/DL (13.3-17.7); LYMPHOCYTES # (AUTO) 1.3 X 10^3 (1.0-4.0); LYMPHOCYTES % (AUTO) 17 % (12-44); MEAN CORPUSCULAR HEMOGLOBIN 28 PG (25-34); MEAN CORPUSCULAR HGB CONC 33 G/DL (32-36); MEAN CORPUSCULAR VOLUME 84 FL (80-99); MEAN PLATELET VOLUME 8.2 FL (7.4-10.4); MONOCYTES # (AUTO) 0.7 X 10^3 (0.0-1.0); MONOCYTES % (AUTO) 9 % (0-12); NEUTROPHILS # (AUTO) 5.4 X 10^3 (1.8-7.8); NEUTROPHILS % (AUTO) 71 % (42-75); PLATELET COUNT 319 10^3/uL (130-400); WHITE BLOOD COUNT 7.7 10^3/uL (4.3-11.0)
[2019-03-22 03:52] LABS: ALANINE AMINOTRANSFERASE 11 U/L (0-55); ALBUMIN 3.7 GM/DL (3.2-4.5); ALKALINE PHOSPHATASE 93 U/L (40-136); BILIRUBIN,TOTAL 0.6 MG/DL (0.1-1.0); BUN/CREATININE RATIO 11; CALCIUM 9.4 MG/DL (8.5-10.1); CARBON DIOXIDE 19 MMOL/L (21-32); CHLORIDE 107 MMOL/L (98-107); CHOLESTEROL 137 MG/DL (< 200); CREATININE SERUM 0.99 MG/DL (0.60-1.30); GFR ESTIMATED > 60; GLUCOSE 99 MG/DL (70-105); HDL CHOLESTEROL 43 MG/DL (40-60); SODIUM 139 MMOL/L (135-145); TRIGLYCERIDES 61 MG/DL (<150); VLDL CHOLESTEROL 12 MG/DL (5-40)
[2019-03-22 04:00] VITALS: BP 115/79
[2019-03-22 08:00] VITALS: BP 120/84
--- NOTE | 2019-03-22 08:04 | Diagnostic Imaging Report ---
EXAMINATION: Chest radiograph, portable AP view. DATE: 03/22/2019 3:13 AM hours. INDICATION: 58-year-old male, history of pulmonary embolus. Shortness of breath. COMPARISON: March 21, 2019. FINDINGS: Stable overall appearance of the cardiomediastinal silhouette. There is no identified pneumothorax. There are new linear opacities in the left mid lung most likely reflecting subsegmental atelectasis. There is additional nonspecific bibasilar airspace consolidation which is largely unchanged. IMPRESSION: 1. New linear opacities in the left midlung most likely relating to subsegmental atelectasis. 2. Additional grossly unchanged nonspecific bibasilar airspace consolidation which may relate to infiltrate, atelectasis, and/or effusions. Dictated by: Dictated on workstation # [id number]
[2019-03-22] MEDS ORDERED: ASPIRIN E.C. 81 MG (ECOTRIN) TAB PO SCH (09:00)
[2019-03-22] MEDS: APIXABAN 5 MG (ELIQUIS) TABLET PO SCH (09:19)
--- NOTE | 2019-03-22 09:19 | Cardiology Progress Note ---
Subjective Date Seen by Provider: Mar 22, 2019 Time Seen by Provider: 09:18 Subjective/Events-last exam Patient is laying down in bed, denied any chest pain, no palpitation Review of Systems General: No Chills, No Night Sweats, No Fatigue, No Malaise, No Appetite, No Other HEENT: No Head Aches, No Visual Changes, No Eye Pain, No Ear Pain, No Dysphasia, No Sinus Congestion, No Post Nasal Drip, No Sore Throat, No Other Pulmonary: No Dyspnea, No Cough, No Pleuritic Chest Pain, No Other Cardiovascular: No: Chest Pain, Palpitations, Orthopnea, Paroxysmal Noc. Dyspnea, Edema, Lt Headedness, Other Focused Exam Lactate Level 03/21/19 08:55: Lactic Acid Level 1.61 Objective-Cardiology Exam Last Set of Vital Signs Vital Signs 03/21/19 03/22/19 20:00 08:00 Temp 37.5 Pulse 71 Resp 24 B/P (MAP) 120/84 (96) Pulse Ox 96 O2 Delivery Room Air Capillary Refill : Less Than 3 Seconds I&O Intake and Output 03/22/19 00:00 Intake Total 3110 ml Balance 3110 ml Intake Oral 1100 ml IV Total 2010 ml # Voids 4 Daily Weight Change No General: Alert, Oriented X3, Cooperative HEENT: Atraumatic, PERRLA Neck: Supple, No JVD, No Thyromegaly Lungs: Clear to Auscultation, Normal Air Movement Heart: Regular Rate, Normal S1, Normal S2, No Murmurs Abdomen: Normal Bowel Sounds, Soft, No Tenderness, No Hepatosplenomegaly, No Masses Extremities: No Clubbing, No Cyanosis, No Edema, Normal Pulses, No Tenderness/Swelling Skin: No Rashes, No Breakdown, No Significant Lesion Neuro: Normal Gait, Normal Speech, Strength at 5/5 X4 Ext, Normal Tone, Sensation Intact Psych/Mental Status: Mental Status NL, Mood NL Results Lab Laboratory Tests 03/22/19 03:06 A/P-Cardiology Admission Diagnosis Chest pain Shortness of breath Acute pulmonary embolism Hypertension Assessment/Plan Acute pulmonary embolism, having active chest pain. Started on Eliquis 10 mg twice daily, can have ultrasound of his lower extremities done as an outpatient Chest pain, shortness of breath, probably secondary to pulmonary embolism, continue to monitor, evaluate 2-D echo Hypertension, restart home medication monitor blood pressure No recent travel. History of tobaccoism in the remote past. No source of embolization was identified yet. Workup is in progress History of syncope over 10 years ago no further episodes were reported Patient is feeling better, no new complaint. Blood pressure stable. Okay for discharge from cardiology standpoint Clinical Quality Measures AMI/AHF: ASA po Prior to arrival: No DVT/VTE Risk/Contraindication: Risk Factor Score Per Nursin RFS Level Per Nursing on Admit: 4+=Very High MARIA A PRETTY MD Mar 22, 2019 09:19
[2019-03-22] MEDS ORDERED: APIX5TAB PO (09:46)
[2019-03-22] MEDS ORDERED: PANT40TA2 PO (09:46)
--- NOTE | 2019-03-22 09:49 | Discharge Inst-Simple/Standard ---
Discharge Inst-Standard Reconcile Patient Problems Problems Reviewed?: Yes Discharge Medications New, Converted or Re-Newed RX: Transmitted to Pharmacy Patient Instructions/Follow Up Plan of Care/Instructions/FU: Please continue to take your medications as written. Please follow up with Dr Hall in the next week to follow up this hospital stay. Activity as Tolerated: Yes Discharge Diet: Cardiac Diet Return to The Hospital For: Shortness of breath, chest pain, bleeding, heart racing, if you feel you are getting worse. YASEMIN SADLER MD Mar 22, 2019 09:49
--- NOTE | 2019-03-22 09:54 | Short Stay Summary-Hospitalist ---
History of Present Illness HPI/Chief Complaint Pt is a 58yoCM with a PMH of HTN who presented to the ER due to chest tightness and shortness of breath. He states it started over the last few days and on 03/20 when he lifted a heavy piece of metal at work he had severe chest tightness and shortness of breath. He did not come in then but called his son in law who is a photolithographic stripper on 03/21 AM and advised him to seek evaluation in the ER. CT Chest was done which revealed bilateral PEs. He denies any history of VTE in himself or his family. He has not had any recent surgery. He denies any episodes of immobility and actually walks over 10,000 steps daily. He has no complaints today. He denies a history of GI bleed or brain bleed as well. Exam Limitations: no limitations Date Seen 03/22/19 Time Seen by a Provider: 09:15 Attending Physician Yasemin Sadler MD PCP Too Hall MD Referring Physician Date of Admission Mar 21, 2019 at 12:30 Home Medications & Allergies Home Medications Reviewed patient Home Medication Reconciliation performed by pharmacy medication reconciliations wind turbine technician and/or nursing. Patients Allergies have been reviewed. Allergies Allergies Coded Allergies codeine (Verified Allergy, Unknown, 07/03/06) Past Cxblcxi-[id number]-Sttpho Hx Past Med/Social Hx: Reviewed Nursing Past Med/Soc Hx Patient Social History Marrital Status: single Employed/Student: employed Alcohol Use: Occasionally Uses Alcohol Beverage of Choice: Beer Recreational Drug Use: No Smoking Status: Former Smoker Type Used: Cigarettes Recent Foreign Travel: No Contact w/other who traveled: No Recent Hopitalizations: No Recent Infectious Disease Expo: No Immunizations Up To Date Pediatric: No Seasonal Allergies Seasonal Allergies: Yes Past Medical History Surgeries: Orthopedic Cardiac: Hypertension Psychosocial: Anxiety History of Blood Disorders: No Family History Reviewed Nursing Family Hx Heart Disease, CAD Over 55 Years Old Father with ALS Review of Systems Constitutional: No chills, No fever EENTM: No blurred vision, No double vision, No nose congestion, No throat pain Respiratory: see HPI, dyspnea on exertion; No hemoptysis; short of breath Cardiovascular: see HPI, chest pain; No edema, No Hx of Intervention, No palpitations Gastrointestinal: No abdominal pain, No constipation, No diarrhea, No nausea, No vomiting Genitourinary: No dysuria, No frequency Musculoskeletal: No joint pain, No muscle pain Skin: No lesions, No rash Psychiatric/Neurological: Denies Headache, Denies Numbness, Denies Tingling Physical Exam Physical Exam Vital Signs Vital Signs - First Documented 03/21/19 08:41 Temp 36.6 Pulse 90 Resp 24 B/P (MAP) 153/83 (106) Pulse Ox 97 O2 Delivery Room Air Capillary Refill : Less Than 3 Seconds Height, Weight, BMI Height: 6'2.00" Weight: 221lbs. 0.0oz. 100.305074ro; 31.74 BMI Method: General Appearance: No Apparent Distress, WD/WN Eyes: Bilateral Eye Normal Inspection, Bilateral Eye PERRL, Bilateral Eye EOMI HEENT: PERRL/EOMI, Moist Mucous Membranes; No Scleral Icterus (L), No Scleral Icterus (R) Neck: Normal Inspection, Supple Respiratory: Lungs Clear, No Accessory Muscle Use, No Respiratory Distress, Respiratory Distress (mild, respiratory rate 24) Cardiovascular: Regular Rate, Rhythm, No Murmur, Normal Peripheral Pulses Gastrointestinal: Normal Bowel Sounds, Non Tender, Soft Neurologic/Psychiatric: Alert, Oriented x3, No Motor/Sensory Deficits, Normal Mood/Affect Skin: Normal Color, Warm/Dry; No Diaphoresis Results Results/Procedures Labs Laboratory Tests 03/21/19 08:55 03/22/19 03:06 Patient resulted labs reviewed. Imaging: Reviewed Imaging Films, Reviewed Imaging Report Imaging Date of Exam:03/21/19 CT ANGIO CHEST W PROCEDURE: CT angiography of the chest with contrast. TECHNIQUE: Multiple contiguous axial images were obtained through the chest after uneventful bolus administration of intravenous contrast. 3D reconstructed CTA MIP acquisitions were also performed. Auto Exposure Controls were utilized during the CT exam to meet ALARA standards for radiation dose reduction. DATE: March 21, 2019. COMPARISON: Chest radiograph March 21, 2019. INDICATION: 58-year-old male, chest pain. FINDINGS: There is nonspecific peripheral airspace consolidation in the left upper lobe on axial image 45 and adjacent sequential images. There is additional airspace consolidation in the left lower lobe which does not entirely homogeneously enhance. There is a trace to small left pleural effusion. There are mild upper lobe predominant changes of emphysema. There are predominantly linear opacities in the right middle lobe most likely relating to atelectasis. There are additional predominantly linear opacities in the right lower lobe also most likely reflecting atelectasis. There is no pneumothorax. The more central airways are patent. There is no sizable right pleural effusion. There is a right-sided pulmonary embolus extending from the right main pulmonary artery into segmental and subsegmental right lower lobe pulmonary artery branches as well as right upper lobe segmental and subsegmental pulmonary artery branches. There is also embolus within the distal aspect of the left main pulmonary artery extending into left upper lobe and left lower lobe segmental branches as well as subsegmental branches of the left upper lobe. The main pulmonary artery diameter measures within normal limits at 2.8 cm. The heart is not enlarged. There is no pericardial effusion. There is no identified abnormally enlarged mediastinal, hilar, or axillary lymph node which meets CT size criteria for adenopathy. The imaged portions of the upper abdomen are unremarkable. There is no identified acute bony abnormality. IMPRESSION: CT CHEST. 1. Bilateral pulmonary emboli extending from the right and left main pulmonary arteries into segmental and subsegmental pulmonary artery branches as detailed above. No abnormally enlarged main pulmonary artery diameter. 2. Nonspecific airspace consolidation in the left upper lobe and left lower lobe. Trace to small left pleural effusion. Dr. Anders was notified by telephone of the bilateral pulmonary emboli at 1059 hours on March 21, 2019 and acknowledged receipt of this critical result. Short Stay Diagnosis Discharge Diagnosis-Short Stay Admission Diagnosis Bilateral Pulmonary Emboli Final Discharge Diagnosis Bilateral Pulmonary Emboli Conclusion Plan Bilateral Pulmonary Emboli Continue on Eliquis Cardiology consulted, appreciate recs Hemodynamically stable, on room air Plan to DC home on Eliquis Anticoagulation education and precautions given HTN Continue home meds Clinical Quality Measures AMI/AHF: ASA po Prior to arrival: No DVT/VTE Risk/Contraindication: Risk Factor Score Per Nursin RFS Level Per Nursing on Admit: 4+=Very High YASEMIN SADLER MD Mar 22, 2019 09:54
[2019-03-22 12:00] VITALS: BP 127/85
[2019-03-22 13:11] VITALS: BP 150/91
== END 2019-03-22 13:00 | disposition home or self-care (01) ==
LOC: EDUNIT# 08:41 → ER 08:42 → ICU 12:30
PROVIDERS: ADMIT Family Medicine; ATTEND Family Medicine
DX: I26.99 Other pulmonary embolism without acute cor pulmonale (principal); I10 Essential (primary) hypertension; F41.9 Anxiety disorder, unspecified; Z87.891 Personal history of nicotine dependence
CPT/HCPCS: 36415; 71045; 71275; 80053; 80061; 80306; 81000; 83605; 83735; 83874; 83880; 84484; 85025; 85379; 85610; 85730; 87040; 87088; 87804; 93005

== ENCOUNTER → 2019-04-06 | Outpatient (CLI) | payer BC ==
[~2019-04-06] MED LIST changes: +APIX5TAB PO; +PANT40TA2 PO
== END ==
LOC: CARD 14:04
PROVIDERS: ATTEND Physician Assistant
DX: R07.89 Other chest pain (principal); I10 Essential (primary) hypertension; I26.99 Other pulmonary embolism without acute cor pulmonale; I08.1 Rheumatic disorders of both mitral and tricuspid valves
CPT/HCPCS: 93306

== ENCOUNTER → 2019-07-15 | Outpatient (CLI) | payer BC ==
[~2019-07-15] VITALS: Ht 187 cm; Wt 117.0 kg
[~2019-07-15] MED LIST changes: +CATHETER FLUSH 10 ML SYR IV PRN; +REGADENOSON 0.4 MG/5 ML SYR (LEXISCAN) IV ONE
--- NOTE | 2019-07-17 13:38 | STRESS TEST ---
DATE OF SERVICE: 07/15/2019 LEXISCAN MYOVIEW STRESS TEST REFERRING PHYSICIAN: Dr. Too Hall. Baseline heart rate is 72. Baseline blood pressure 156/97. Baseline EKG is sinus rhythm with no ischemic changes. In summary, the patient was injected with 10.94 mCi of technetium-99 Myoview and the resting images were obtained. Then, the patient received 0.4 mg of Lexiscan followed by 29.8 mCi of technetium-99 Myoview. Throughout the test, there were no EKG changes. The resting and stress images were reviewed and compared in the short axis, horizontal long axis, and vertical long axis views. Review of the images showed diaphragmatic attenuation with motion artifact, there is decreased uptake involving the mid to apical inferior wall and inferoseptum with reversibility. SSS is 9, SDS 6, TID value 0.9. On the gated images, the left ventricle appeared to be normal size with normal contractility. Calculated ejection fraction 56%. CONCLUSION: 1. The patient tolerated Lexiscan well. 2. Diaphragmatic attenuation with motion artifact affecting the quality of the images. There is questionable ischemia involving the mid to apical inferior wall and inferoseptum. 3. Normal left ventricular size with normal contractility. Calculated ejection fraction is 56%. Job ID: [id number] DocumentID: [id number] Dictated Date: 07/15/2019 11:20:11 Frame And Scrap Crusher Date: 07/15/2019 12:31:15 Dictated By: MARIA A PRETTY MD
== END ==
LOC: CARD 07:01
PROVIDERS: ATTEND Physician Assistant
DX: I10 Essential (primary) hypertension (principal); I34.0 Nonrheumatic mitral (valve) insufficiency; I26.99 Other pulmonary embolism without acute cor pulmonale; R06.02 Shortness of breath; R07.89 Other chest pain
CPT/HCPCS: 78452; 93017

== ENCOUNTER 2019-07-22 10:54 | Day surgery (SDC) | payer BC ==
[~2019-07-22] VITALS: Ht 185.5 cm; Wt 119.8 kg
[2019-07-22] VITALS (7 sets, daily range): BP systolic 105–132; BP diastolic 65–87
[~2019-07-22 10:54] MED LIST changes: -CATHETER FLUSH 10 ML SYR IV PRN; -REGADENOSON 0.4 MG/5 ML SYR (LEXISCAN) IV ONE
[2019-07-22] MEDS ORDERED: NS IV 1000 ML 1,000 ML IV SCH ×2 (11:05→14:52)
[2019-07-22] MEDS ORDERED: HEParin (CATH LAB) 2,000 ML IV ONE (11:08)
[2019-07-22] MEDS ORDERED: NS IV 1000 ML 1,000 ML ONE (11:08)
[2019-07-22] MEDS ORDERED: LIDOCAINE 1% INJ 20 ML 20 ML VIAL ONE (11:08)
[2019-07-22] MEDS ORDERED: NS IV 1000 ML 1,000 ML IV ONE (11:15)
[2019-07-22 11:42] LABS: BILIRUBIN,URINE NEGATIVE (NEGATIVE); CLARITY,URINE SL CLOUDY; COLOR,URINE YELLOW; GLUCOSE, URINE (UA) NEGATIVE (NEGATIVE); KETONES,URINE NEGATIVE (NEGATIVE); LEUKOCYTE ESTERASE ,URINE NEGATIVE (NEGATIVE); NITRITE,URINE NEGATIVE (NEGATIVE); PROTEIN,URINE NEGATIVE (NEGATIVE)
[2019-07-22 11:43] LABS: HEMOGLOBIN 15.4 G/DL (13.3-17.7); MEAN PLATELET VOLUME 8.4 FL (7.4-10.4); RED CELL DISTRIBUTION WIDTH 15.2 % (10.0-14.5); WHITE BLOOD COUNT 8.8 10^3/uL (4.3-11.0)
[2019-07-22 11:50] LABS: BACTERIA,URINE TRACE /HPF
[2019-07-22 11:54] LABS: PROTHROMBIN TIME PATIENT 13.6 SEC (12.2-14.7)
--- NOTE | 2019-07-22 11:58 | Diagnostic Imaging Report ---
INDICATION: Chest pain. EXAMINATION: Portable chest at 11:48 a.m. FINDINGS: Patient has a dorsal column stimulator with lead projecting over the midthoracic spine. There is some atelectasis of left lung base. There are no infiltrates, effusions, or pneumothoraces. Heart size is normal. IMPRESSION: Minimal left basilar atelectasis. Dictated by: Dictated on workstation # [id number]
[2019-07-22 12:00] LABS: ALANINE AMINOTRANSFERASE 17 U/L (0-55); ALBUMIN 4.3 GM/DL (3.2-4.5); ALKALINE PHOSPHATASE 92 U/L (40-136); BILIRUBIN,TOTAL 0.4 MG/DL (0.1-1.0); BUN/CREATININE RATIO 19; CALCIUM 9.5 MG/DL (8.5-10.1); CARBON DIOXIDE 22 MMOL/L (21-32); CHLORIDE 109 MMOL/L (98-107); CREATININE SERUM 1.04 MG/DL (0.60-1.30); GFR ESTIMATED > 60; GLUCOSE 98 MG/DL (70-105); POTASSIUM 3.9 MMOL/L (3.6-5.0); SODIUM 141 MMOL/L (135-145); TOTAL PROTEIN 7.6 GM/DL (6.4-8.2)
[2019-07-22] MEDS ORDERED: AMLO10TA7 PO (12:00)
[2019-07-22] MEDS ORDERED: MTP25TSR PO (12:00)
[2019-07-22] MEDS ORDERED: OMEP20TA33 PO (12:00)
[2019-07-22] MEDS ORDERED: LOSA100T57 PO (12:00)
[2019-07-22] MEDS ORDERED: MIDAZOLAM 5 MG/5 ML (VERSED) VIAL ONE (14:01)
[2019-07-22] MEDS ORDERED: fentaNYL INJECTION 100 MCG/2 ML AMP ONE (14:02)
[2019-07-22] MEDS ORDERED: ONDANSETRON 4 MG/2 ML (SDV) Z0FRAN ONE (14:30)
[2019-07-22] MEDS ORDERED: VERAPAMIL 5 MG/2 ML (CALAN) VIAL IV ONE (14:32)
[2019-07-22] MEDS ORDERED: HEParin 1000 UNIT/ML (10ML VIAL) FOR BOLUS ONE (14:32)
[2019-07-22] MEDS ORDERED: NITRO DRIP 25000 MCG/D5W 250 ML IV ONE ×2 (14:32→14:33)
--- NOTE | 2019-07-22 14:54 | Discharge Inst-Post CATH ---
Discharge Inst-CATH/EP Problems Reviewed?: Yes Post Cardiac Cath/EP D/C Inst Follow Up/Plan Appointment with Dr. Simpson's office in 4 weeks <b>CARDIAC CATH/EP PROCEDURE DISCHARGE INSTRUCTIONS</b> ACTIVITY * Go Home directly and rest. * Limit activity of the leg (or wrist if it was used) for 7 days including aerobics, swimming, jogging, bicycling, etc. * Restrict stair-climbing for 7 days if possible, if not, climb up with your non-cath leg, then bring together on the same step. * Avoid lifting, pushing, pulling or excessive movement of the affected extremity for 7 days. * Customary sexual activity may be resumed after 2 days-use caution not to use a position that strains or causes pain to the affected extremity. * No driving for 24 hours. * NO SMOKING. * Avoid straining for bowel movements for 7 days. * Gentle walking on level ground is allowed. * Returning to work will depend on the type of procedure and the results. Your doctor will discuss this with you. CALL YOUR DOCTOR FOR ANY OF THE FOLLOWING: *If bleeding from the puncture site occurs- Apply gentle pressure to site with clean cloth and call your doctor or EMS. * If a knot or lump forms under the skin, increases in size, or causes pain. * If bruising appears to be worsening or moving further down your leg instead of disappearing. * Temperature above 101 F. CARE OF YOUR GROIN INCISION; * Bruising or purple discoloration of the skin near the puncture site is common. * You may shower only, no bathtub bathing for 5 days. Be careful to avoid slipping as your leg may feel stiff. * If a closure device was used on your femoral artery, please see the attached guide regarding care of the device and your leg. * Leave dressing on FOR 24 hours. CARE OF YOUR WRIST INCISION; * Bruising or purple discoloration of the skin near the puncture site is common. * You may shower. * DO NOT submerge wrist. * Leave dressing on FOR 24 hours. MARIA A SIMPSON MD July 22, 2019 14:53
--- NOTE | 2019-07-22 14:58 | Cardiac Cath Report ---
Cardiac Cath Report Physician (s)/Topper Packer (s) Physician MARIA A PRETTY MD Pre-Procedure Diagnosis Pre-Procedure Diagnosis: coronary artery disease Post-Procedure Note Procedure Start Date: July 22, 2019 Name of Procedure: Left heart catheterization Findings/Procedure Note PROCEDURE NOTE: 59 years old gentleman with history of hypertension, hyperlipidemia, had an abnormal stress test, scheduled for cardiac catheterization possible PTCA. After explaining the procedure to the patient, all pros and cons were explained, all questions were answered. The patient signed the consent and then he was placed on the cardiac catheterization laboratory. Groin was prepped SL fashion local anesthesia was used. Sheath placed in the right radial artery, [place] catheter was used, advanced to the left ventricle then to the coronary system and angiogram to the coronary was done, no left ventricular gram was done, pressure was measured At the end of the procedure the sheath was removed. Vascular band was used FINDINGS: Hemodynamics LV 85/ 4, end-diastolic pressure for Aorta 86/55 mean of 55 ANATOMY: Left Main is free of obstructive disease Left Anterior Descending has mild disease nonobstructive disease Left Circumflex has mild disease nonobstructive disease Right Coronory Artery has superior origin, slight irregularity with slow flow in the right coronary artery probably due to small vessel disease LV Gram was not done, pressure was measured CONCLUSION: 1. Mild coronary artery disease with slow flow in the right coronary system, nonobstructive disease 2. Normal left ventricular end-diastolic pressure DISCUSSION AND RECOMMENDATION: Medical therapy is recommended no intervention is needed Anesthesia Type: Conscious Sedation Estimated blood loss (mL): 5 ml Contrast Amount: 29 ml Total Radiation Dose: 398 mGy Post-Procedure Diagnosis Post-operative diagnosis: Chest pain Coronary artery disease Hypertension Hyperlipidemia MARIA A PRETTY MD July 22, 2019 14:58
== END 2019-07-22 17:02 | disposition home or self-care (01) ==
LOC: CATH 10:54 → SDC 15:05 → CATH 17:02
PROVIDERS: ATTEND Internal Medicine Cardiovascular Disease
DX: I25.10 Atherosclerotic heart disease of native coronary artery without angina pectoris (principal); I10 Essential (primary) hypertension; E78.5 Hyperlipidemia, unspecified; I08.1 Rheumatic disorders of both mitral and tricuspid valves; Z86.711 Personal history of pulmonary embolism; Z88.5 Allergy status to narcotic agent; Z79.01 Long term (current) use of anticoagulants; Z79.899 Other long term (current) drug therapy
CPT/HCPCS: 36415; 71045; 80053; 81000; 85027; 85610; 85730; 87081; 93458

== ENCOUNTER 2019-09-15 15:08 | Outpatient (RCR) | payer BC ==
[2019-06-25 15:28] LABS: BASOPHILS # (AUTO) 0.1 10^3/uL (0.0-0.1); BASOPHILS % (AUTO) 2 % (0-10); EOSINOPHILS # (AUTO) 0.3 10^3/uL (0.0-0.3); EOSINOPHILS % (AUTO) 4 % (0-10); HEMATOCRIT 47 % (40-54); HEMOGLOBIN 15.5 G/DL (13.3-17.7); LYMPHOCYTES # (AUTO) 1.7 X 10^3 (1.0-4.0); LYMPHOCYTES % (AUTO) 23 % (12-44); MEAN CORPUSCULAR HEMOGLOBIN 28 PG (25-34); MEAN CORPUSCULAR HGB CONC 33 G/DL (32-36); MEAN CORPUSCULAR VOLUME 83 FL (80-99); MEAN PLATELET VOLUME 8.2 FL (7.4-10.4); MONOCYTES # (AUTO) 0.6 X 10^3 (0.0-1.0); MONOCYTES % (AUTO) 8 % (0-12); NEUTROPHILS # (AUTO) 4.5 X 10^3 (1.8-7.8); NEUTROPHILS % (AUTO) 63 % (42-75); PLATELET COUNT 305 10^3/uL (130-400); RED CELL DISTRIBUTION WIDTH 14.8 % (10.0-14.5); WHITE BLOOD COUNT 7.2 10^3/uL (4.3-11.0)
[2019-06-25 15:51] LABS: ALANINE AMINOTRANSFERASE 11 U/L (0-55); ALBUMIN 4.1 GM/DL (3.2-4.5); ALKALINE PHOSPHATASE 107 U/L (40-136); BILIRUBIN,TOTAL 0.2 MG/DL (0.1-1.0); BUN/CREATININE RATIO 21; CALCIUM 9.2 MG/DL (8.5-10.1); CARBON DIOXIDE 22 MMOL/L (21-32); CHLORIDE 107 MMOL/L (98-107); CREATININE SERUM 0.95 MG/DL (0.60-1.30); GFR ESTIMATED > 60; GLUCOSE 104 MG/DL (70-105); POTASSIUM 4.4 MMOL/L (3.6-5.0); SODIUM 138 MMOL/L (135-145); TOTAL PROTEIN 7.6 GM/DL (6.4-8.2)
[~2019-09-15 15:08] MED LIST changes: +AMLO10TA7 PO; +LOSA100T57 PO; +MTP25TSR PO; +OMEP20TA33 PO
== END 2019-09-23 | disposition home or self-care (01) ==
LOC: ONC 15:08
PROVIDERS: ATTEND Internal Medicine Hematology & Oncology
DX: I26.99 Other pulmonary embolism without acute cor pulmonale (principal)
CPT/HCPCS: 80053; 81241; 85025; G0463; 99213

== ENCOUNTER 2019-10-27 13:53 | Outpatient (RCR) | payer BC ==
[~2019-10-27 13:53] MED LIST changes: +AMLO-251 PO; -AMLO10TA7 PO
== END 2020-01-10 | disposition home or self-care (01) ==
LOC: ONC 13:53
PROVIDERS: ATTEND Internal Medicine Hematology & Oncology
DX: I26.99 Other pulmonary embolism without acute cor pulmonale (principal)
CPT/HCPCS: 81240; 85300; 85302; 85305; 86147; 99213

== ENCOUNTER → 2019-12-08 | Outpatient (CLI) | payer BC ==
[~2019-12-08] MED LIST changes: -AMLO-251 PO; +AMLO10TA7 PO; +RT-ALBUTEROL SULF 2.5 MG/3 ML PRE-MIX VIAL INH ONE
== END ==
LOC: RT 15:04
PROVIDERS: ATTEND Internal Medicine
DX: R05 Cough (principal); R06.00 Dyspnea, unspecified
CPT/HCPCS: 94060; 94726; 94729

== ENCOUNTER → 2021-03-30 | Outpatient (CLI) | payer BC ==
[~2021-03-30] VITALS: Ht 188 cm; Wt 123.0 kg
[~2021-03-30] MED LIST changes: +ACETAMINOPHEN 500 MG TAB (TYLENOL) PO PRN; +AMLO-251 PO; -AMLO10TA7 PO; +CASIRIVIMAB/IMDEVIMAB 1,200 MG in NS (IVPB) 50 ML IV ONE; +EPINEPHrine INJECTION 1 MG/ML AMP IM PRN; -LISI-552 PO; +LISI20TA26 PO; +ONDANSETRON 4 MG/2 ML (SDV) Z0FRAN IV PRN; -RT-ALBUTEROL SULF 2.5 MG/3 ML PRE-MIX VIAL INH ONE; +diphenhydrAMINE 50 MG/ML INJ (BENADRYL) IV PRN
[2021-03-30 12:36] VITALS: BP 119/79
== END ==
LOC: INFUSION 11:17
PROVIDERS: ATTEND Nurse Practitioner Family
DX: U07.1 COVID-19 (principal)

== ENCOUNTER 2021-10-24 05:38 | Outpatient (CLI) | payer BC ==
[~2021-10-24] VITALS: Ht 188 cm; Wt 113.4 kg
[~2021-10-24 05:38] MED LIST changes: -ACETAMINOPHEN 500 MG TAB (TYLENOL) PO PRN; -CASIRIVIMAB/IMDEVIMAB 1,200 MG in NS (IVPB) 50 ML IV ONE; -EPINEPHrine INJECTION 1 MG/ML AMP IM PRN; -ONDANSETRON 4 MG/2 ML (SDV) Z0FRAN IV PRN; -diphenhydrAMINE 50 MG/ML INJ (BENADRYL) IV PRN
[2021-10-24] MEDS ORDERED: ASPI-999 PO (13:39)
== END 2021-10-25 14:01 | disposition home or self-care (01) ==
LOC: PREOP 05:38
PROVIDERS: ATTEND Specialist
DX: Z01.818 Encounter for other preprocedural examination (principal)

== ENCOUNTER 2021-10-27 10:27 | Day surgery (SDC) | payer BC ==
[~2021-10-27] VITALS: Ht 188 cm; Wt 113.4 kg
[~2021-10-27 10:27] MED LIST changes: +ASPI-999 PO
[2021-10-27] MEDS ORDERED: MIDAZOLAM 2 MG/2 ML (VERSED) VIAL ONE (10:56)
[2021-10-27] MEDS: TETRACAINE 0.5% OPHTH SOLN 4 ML BTL (SINGLE DOSE ONLY) OU PRN ×4 (11:12→11:28)
[2021-10-27 11:15] VITALS: BP 125/77
[2021-10-27] MEDS ORDERED: MOXIFLOXACIN OPHTH SOLN 5 MG/ML 0.3 ML SYRINGE OP ONE (11:15)
[2021-10-27] MEDS ORDERED: POVIDONE (BETADINE) OPHTH SOLN 5% 30 ML OP ONE (11:15)
[2021-10-27] MEDS ORDERED: TIMOLOL MALEATE 0.5% 5 ML (TIMOPTIC) BTL OU PRN (11:15)
[2021-10-27] MEDS: PHENYLEPHRINE 10% OPHTH (NEO-SYN) 5 ML BTL OU SCH ×3 (11:18→11:28)
[2021-10-27] MEDS: TROPICAMIDE 1% OPH SOLN (MYDRIACYL) 15 ML BTL OP SCH ×3 (11:18→11:28)
[2021-10-27 11:40] VITALS: BP 125/77
--- NOTE | 2021-10-27 11:59 | Ophthalmologist Pre-Op Note ---
Pre-Operative Progress Note H&P Reviewed The H&P was reviewed, patient examined and no changes noted. Date H&P Reviewed: Oct 27, 2021 Time H&P Reviewed: 11:59 Pre-Op Dx Cataract, Left Eye HAYLEY LEIJA MD Oct 27, 2021 11:59
--- NOTE | 2021-10-27 12:22 | Ophthalmology Operative Report ---
Cataract removal/placement IOL PREOPERATIVE DIAGNOSIS: Cataract Left Eye POSTOPERATIVE DIAGNOSIS: Cataract Left Eye PROCEDURE: Cataract removal and placement of posterior chamber implant, left eye SURGEON: Hemanth Leija ANESTHESIA: Topical with sedation COMPLICATIONS: None ESTIMATED BLOOD LOSS: Minimal DESCRIPTION OF PROCEDURE: After proper informed consent was obtained, the patient, a 61 male, was taken to the Operating Room and the left eye was anesthetized with tetracaine. The left eye was then prepped and draped in the usual manner. A wire lid speculum was placed. A paracentesis was made at the left hand position. Preservative free lidocaine was injected into the anterior chamber followed by viscoelastic. A clear corneal incision was made in the temporal position. A capsulorrhexis was preformed and the central nuclear and cortical material were removed. The posterior capsule was polished and an Jonathan 20.0 AU00T0 was placed into the capsular bag. The residual viscoelastic was aspirated and balanced saline solution was injected into the anterior chamber. Moxifloxacin was injected into the anterior chamber. The wound was checked and found to be water tight. The patient tolerated the procedure well without complications. HEMANTH LEIJA MD Oct 27, 2021 12:22
[2021-10-27 12:27] VITALS: BP 128/78
[2021-10-27] MEDS ORDERED: acetaZOLAMIDE ER 500 MG CAP (DIAMOX SEQUELS) PO ONE (14:00)
--- NOTE | 2021-10-27 14:53 | Anesthesia-General Post-Op ---
MAC Patient Condition Mental Status/LOC: Same as Preop Cardiovascular: Satisfactory Nausea/Vomiting: Absent Respiratory: Satisfactory Pain: Controlled Complications: Absent Post Op Complications Complications None Follow Up Care/Instructions Patient Instructions None needed. Anesthesiology Discharge Order Discharge Order Patient is doing well, no complaints, stable vital signs, no apparent adverse anesthesia problems. No complications reported per nursing. ADOLFO TEIXEIRA CRNA Oct 27, 2021 14:53
== END 2021-10-27 12:29 ==
LOC: SDC 10:27
PROVIDERS: ATTEND Specialist
DX: H26.9 Unspecified cataract (principal); Z87.891 Personal history of nicotine dependence
CPT/HCPCS: 66984; V2632

== ENCOUNTER 2021-11-01 07:05 | Outpatient (CLI) | payer BC | END 2021-11-06 10:58 | LOC: PREOP 07:05 | PROVIDERS: ATTEND Specialist | DX: Z01.818 Encounter for other preprocedural examination (principal); H25.11 Age-related nuclear cataract, right eye ==

== ENCOUNTER 2021-11-10 07:30 | Day surgery (SDC) | payer BC ==
[~2021-11-10] VITALS: Ht 188 cm; Wt 113.4 kg
[2021-11-10] MEDS: TETRACAINE 0.5% OPHTH SOLN 4 ML BTL (SINGLE DOSE ONLY) OU PRN ×4 (07:41→08:00)
[2021-11-10] MEDS ORDERED: POVIDONE (BETADINE) OPHTH SOLN 5% 30 ML OP ONE (07:45)
[2021-11-10] MEDS ORDERED: TIMOLOL MALEATE 0.5% 5 ML (TIMOPTIC) BTL OU PRN (07:45)
[2021-11-10] MEDS ORDERED: MOXIFLOXACIN OPHTH SOLN 5 MG/ML 0.3 ML SYRINGE OP ONE (07:45)
[2021-11-10 07:47] VITALS: BP 111/78
[2021-11-10] MEDS: TROPICAMIDE 1% OPH SOLN (MYDRIACYL) 15 ML BTL OP SCH ×3 (07:50→08:00)
[2021-11-10] MEDS: PHENYLEPHRINE 10% OPHTH (NEO-SYN) 5 ML BTL OU SCH ×3 (07:50→08:00)
[2021-11-10] MEDS ORDERED: MIDAZOLAM 2 MG/2 ML (VERSED) VIAL ONE (08:31)
[2021-11-10] MEDS ORDERED: acetaZOLAMIDE ER 500 MG CAP (DIAMOX SEQUELS) PO ONE (09:00)
--- NOTE | 2021-11-10 09:04 | Ophthalmology Operative Report ---
Cataract removal/placement IOL PREOPERATIVE DIAGNOSIS: Cataract Right Eye POSTOPERATIVE DIAGNOSIS: Cataract Right Eye PROCEDURE: Cataract removal and placement of posterior chamber implant, right eye SURGEON: Hemanth Leija ANESTHESIA: Topical with sedation COMPLICATIONS: None ESTIMATED BLOOD LOSS: Minimal DESCRIPTION OF PROCEDURE: After proper informed consent was obtained, the patient, a 61 male, was taken to the Operating Room and the right eye was anesthetized with tetracaine. The right eye was then prepped and draped in the usual manner. A wire lid speculum was placed. A paracentesis was made at the left hand position. Preservative free lidocaine was injected into the anterior chamber followed by viscoelastic. A clear corneal incision was made in the temporal position. A capsulorrhexis was preformed and the central nuclear and cortical material were removed. The posterior capsule was polished and Jonathan AU00T0 20.0 IOL was placed into the capsular bag. The residual viscoelastic was aspirated and balanced saline solution was injected into the anterior chamber. Moxifloxacin was injected into the anterior chamber. The wound was checked and found to be water tight. The patient tolerated the procedure well without complications. HEMANTH LEIJA MD Nov 10, 2021 09:04
--- NOTE | 2021-11-10 09:04 | Ophthalmologist Pre-Op Note ---
Pre-Operative Progress Note H&P Reviewed The H&P was reviewed, patient examined and no changes noted. Date H&P Reviewed: Nov 10, 2021 Time H&P Reviewed: 08:33 Pre-Op Dx Cataract, Right Eye HAYLEY LEIJA MD Nov 10, 2021 09:04
[2021-11-10 09:12] VITALS: BP 113/75
--- NOTE | 2021-11-10 12:39 | Anesthesia-General Post-Op ---
MAC Patient Condition Mental Status/LOC: Same as Preop Cardiovascular: Satisfactory Nausea/Vomiting: Absent Respiratory: Satisfactory Pain: Controlled Complications: Absent Post Op Complications Complications None Follow Up Care/Instructions Patient Instructions None needed. Anesthesiology Discharge Order Discharge Order Patient is doing well, no complaints, stable vital signs, no apparent adverse anesthesia problems. No complications reported per nursing. PEÑA VASQUEZ CRNA Nov 10, 2021 12:39
== END 2021-11-10 10:15 | disposition home or self-care (01) ==
LOC: SDC 07:30
PROVIDERS: ATTEND Specialist
DX: H25.9 Unspecified age-related cataract (principal); Z87.891 Personal history of nicotine dependence; Z79.82 Long term (current) use of aspirin
CPT/HCPCS: 66984; V2632

== ENCOUNTER → 2022-01-10 | Outpatient (CLI) | payer BC | END | disposition home or self-care (01) | LOC: PREOP 05:34 | PROVIDERS: ATTEND Internal Medicine | DX: Z01.818 Encounter for other preprocedural examination (principal) ==

== ENCOUNTER 2022-02-09 07:06 | Day surgery (SDC) | payer BC ==
--- NOTE | 2022-01-05 06:16 | HISTORY AND PHYSICAL ---
DATE OF SERVICE: COLONOSCOPY HISTORY AND PHYSICAL DATE OF ADMISSION: 01/19/2022 HISTORY OF PRESENT ILLNESS: The patient is a 61-year-old white male referred by Dr. Hall for screening colonoscopy. He reports one other colonoscopy well over 10 years ago, but he believes it was unremarkable. He is deemed to be of average risk as he is not aware of any family history for colon cancer or colon polyps. He denies bright red blood per rectum, melena, abdominal pain or change in bowel habit. PAST MEDICAL HISTORY: Significant for coronary artery disease. He reports no stents. He has a history of hypertension. MEDICATIONS ON ADMISSION: Include amlodipine 10 mg daily, losartan 100 mg daily, metoprolol 25 mg daily, p.r.n. alprazolam 0.5 mg and p.r.n. albuterol. He has a past history of smoking and reports mild COPD. This does not typically interfere with his occupation as a [employer]. PAST SURGICAL HISTORY: He had lumbar diskectomy in 2001. He has had bilateral rotator cuff repairs in the past and removal of a spermatocele in 2019. SOCIAL HISTORY: He is employed as a [place] at [employer]. A 41-[id number]-tnna smoking history, but quit 12 years ago. Occasional small volume alcohol use. FAMILY HISTORY: Father and father's cause of was ALS. He has also had a stroke as well. One brother with hypertension and a sister with depression. No other family history of vascular disease and mother of complications of COPD, was a smoker. REVIEW OF SYSTEMS: CONSTITUTIONAL: Denies night sweats, chills, fever, change in weight. PULMONARY: Reports stable dyspnea on exertion. Denies regular sputum production or wheezing. CARDIOVASCULAR: Denies chest discomfort, orthopnea, PND, pedal edema. No dyspnea at rest, stable dyspnea on exertion. GASTROINTESTINAL: As noted in the HPI. PHYSICAL EXAMINATION: GENERAL: Reveals a white male, appeared to be in no acute distress. VITAL SIGNS: Weight 243 pounds, blood pressure 128/80. HEENT: Unremarkable. Sclerae nonicteric. CHEST: Clear. CARDIOVASCULAR: Reveals regular rate and rhythm without murmur, S3 or S4. ABDOMEN: Soft, supple without mass, organomegaly or tenderness. No evidence for abdominal aortic aneurysm to palpation. No bruits noted. EXTREMITIES: Reveal no cyanosis, clubbing or edema. ASSESSMENT AND PLAN: The patient is being set up for screening colonoscopy. Prep instructions were given and questions answered. I thank you for the referral of this pleasant gentleman. Job ID: [id number] DocumentID: [id number] Dictated Date: 12/26/2021 06:27:22 [place] Date: 12/26/2021 06:58:42 Dictated By: ERICA RODRIGUEZ MD MTDD
[~2022-02-09] VITALS: Ht 188 cm; Wt 110.2 kg
[~2022-02-09 07:06] MED LIST changes: +RT-ALBUINH INH
[2022-02-09] MEDS ORDERED: LACTATED RINGERS 1,000 ML IV STA (07:12)
[2022-02-09 07:20] VITALS: BP 139/79
[2022-02-09] MEDS ORDERED: PROPOFOL INJECTION 50 ML IV ONE (07:24)
--- NOTE | 2022-02-09 07:56 | Pre-Op Note & Conscious Sedat ---
Pre-Operative Progress Note Date H&P Reviewed: Feb 09, 2022 Time H&P Reviewed: 07:56 History & Physical: H&P Reviewed, Patient Examed, No changes noted Pre-Op Diagnosis: screening Conscious Sedation Pre-Proced ASA Score 2 For ASA 3 and 4: Consider anesthesia and medical clearance. Also, for patients with a history of failed moderate sedation consider anesthesia. Airway Lungs Heart ASA score ASA 1: a normal healthy patient ASA 2: a patient with a mild systemic disease (mid diabetes, controlled hypertension, obesity ASA 3: a patient with a severe systemic disease that limits activity (angina, COPD, prior Myocardial infarction) ASA 4: a patient with an incapacitating disease that is a constant threat to life (CHF, renal failure) ASA 5: a moribund patient not expected to survive 24 hrs. (ruptured aneurysm) ASA 6: a declared brain- patient whose organs are being harvested. For emergent operations, add the letter E after the classification Mallampati Classification Grade 2 Sedation Plan Analgesia, Amnesia, Plan communicated to team members, Discussed options with patient/fam, Discussed risks with patient/fam The patient is an appropriate candidate to undergo the planned procedure, sedation, and anesthesia. The patient immediately re-assessed prior to indication. ERICA RODRIGUEZ MD Feb 09, 2022 07:56
--- NOTE | 2022-02-09 08:23 | Anesthesia-General Post-Op ---
MAC Patient Condition Mental Status/LOC: Same as Preop Cardiovascular: Satisfactory Nausea/Vomiting: Absent Respiratory: Satisfactory Pain: Controlled Complications: Absent Post Op Complications Complications None Follow Up Care/Instructions Patient Instructions None needed. Anesthesiology Discharge Order Discharge Order Patient is doing well, no complaints, stable vital signs, no apparent adverse anesthesia problems. No complications reported per nursing. DOLORES DOOLEY CRNA Feb 09, 2022 08:23
[2022-02-09 08:25] VITALS: BP 94/60
--- NOTE | 2022-02-09 08:25 | Progress Note-Post Operative ---
Post-Procedure Note Physician (s)/[employer] Representative (s) Physician ERICA RODRIGUEZ MD Pre-Procedure Diagnosis Pre-Procedure Diagnosis: screening Post-Procedure Diagnosis Post-operative diagnosis: Prior to undergoing colonoscopy digital rectal evaluation was performed. Anal sphincter tone was normal and the perianal reflexes intact. The prostate is moderately enlarged and a nodular on digital inspection. No other abnormalities are noted on digital inspection of the anal canal or distal rectal vault. The colonoscope was then inserted into the rectum and under direct visualization was advanced to the cecum. The cecum was identified by identification of the ileocecal valve and the cecal strap. Photographic documentation was obtained. Quality the prep was good. A careful inspection was made as the colonoscope was withdrawn. Findings: There were no evidence for internal or external hemorrhoids and the rectum and sigmoid colon were unremarkable. A 4 mm sessile polyp was noted in the proximal descending colon. It was biopsied and ablated with hot forceps with no blood loss. The splenic flexure transverse colon hepatic flexure ascending colon and cecum were unremarkable. A/P 1. One 4 mm sessile polyp was removed from the proximal descending colon. As long as there are no surprises on histopathology report would advocate consideration for repeat screening colonoscopy in 10 years. Digital evaluation of the prostate was compatible with moderate BPH with no nodularity. CC: MD JENNIFER Breaux,ERICA Nino MD Feb 09, 2022 08:25
[2022-02-09 08:30] VITALS: BP 98/62
[2022-02-09 08:51] VITALS: BP 116/75
[2022-02-09 08:52] VITALS: BP 116/75
== END 2022-02-09 09:08 | disposition home or self-care (01) ==
LOC: ENDO 07:06
PROVIDERS: ATTEND Internal Medicine
DX: Z12.11 Encounter for screening for malignant neoplasm of colon (principal); K63.5 Polyp of colon; N40.0 Benign prostatic hyperplasia without lower urinary tract symptoms; Z87.891 Personal history of nicotine dependence